=== PATIENT | male | born 1980 | race Hispanic/Latino ===

== ENCOUNTER 2025-04-11 11:19 | Emergency (ER) | payer BC, MEDICAID ==
[~2025-04-11] VITALS: Ht 175.3 cm; Wt 176.0 kg
--- NOTE | 2025-04-11 11:48 | ERN ---
ED Note History of Present Illness Stated Complaint: LLQ ABSCESS Chief Complaint: Abscess Time Seen by MD: 11:22 Time Seen by Midlevel: 11:25 Dictation: 44-year-old male with no past medical history coming in with complaints of abscess to the left lateral abdominal wall. Patient states these started with a redness on Thursday, went to the PCP today and was sent here for evaluation. Denies having any fevers, nausea vomiting or diarrhea. Allergies: Coded Allergies: No Known Allergies (Unverified Allergy, Unknown, 04/11/25) Past Medical History Past Medical History: Sinusitis Surgical History: Other Surgical History Other: SINUS Review of System Dictation Constitutional: Negative for fever,chills, and weight loss Eyes: Negative for injury, pain,redness, and discharge ENT: Negative for injury,pain or swelling Cardiovascular: Negative for chest pain, palpitations, and edema Respiratory: Negative for shortness of breath, cough, and wheezing, Abdomen/GI: Negative for abdominal pain, nausea, vomiting, diarrhea, and constipation, redness and drainage to the left abdomen wall, laterally Back: Negative for injury and pain : Negative for injury, bleeding and discharge MS/Extremity: Negative for injury and deformity Skin: Negative for rash, and discoloration Neuro: Negative for headache, weakness, numbness, tingling, and seizure Psych: Negative for suicide ideation, homicidal ideation, and hallucinations Review of Systems: was completed Initial Vital Sign VS Vital Signs Date Time Temp Pulse Resp B/P (MAP) Pulse Ox O2 Delivery O2 Flow Rate FiO2 04/11/25 11:20 98.1 95 18 131/70 94 Room Air 0 04/11/25 12:31 21 Physical Exam Dictation General: awake, alert, NAD Head/Face: Normocephalic, atraumatic Eyes: PERRL, EOMI, vision at baseline ENT: oral cavity clear, TMs clear, no signs of infection Neck: Trachea midline, supple, no nuchal rigidity Cardiovascular: RRR, normal S1/S2, No MRGs, no JVD Respiratory: CTAB, no respiratory distress, No rales or wheezes Abdomen: Soft, non-tender, non-distended, normal bowel sounds, no guarding or rebound., there is an area on the left lateral abdominal wall that is red, a drainage induration Skin: Warm, dry, normal turgor, no rash MS/Extremity: Pulses equal, no cyanosis, neurovascular intact, FROM Neuro: COAx4, GCS 15, strength 5/5, CN 2-12 intact, normal cerebellar exam, normal gait, Psych: Normal behavior, mood, and affect normal Results (Laboratory/Radiology) Laboratory/Radiology Laboratory Tests Test 04/11/25 11:46 White Blood Count 9.0 K/uL (4.8-10.8) Red Blood Count 5.71 MIL/uL (4.50-6.20) Hemoglobin 15.5 g/dL (14.0-18.0) Hematocrit 46.4 % (42-54) Mean Corpuscular Volume 81.3 fL (79-99) Mean Corpuscular Hemoglobin 27.1 pg (27.0-33.0) Mean Corpuscular Hemoglobin Concent 33.4 g/dL (32.0-36.0) Red Cell Distribution Width 12.9 % (11.0-15.5) Platelet Count 253 K/uL (130-400) Mean Platelet Volume 9.6 fL (7.5-10.5) Immature Granulocyte % (Auto) 0.2 % (0-1) Neutrophils (%) (Auto) 67.9 % (40.0-77.0) Lymphocytes (%) (Auto) 20.5 % (21.0-51.0) L Monocytes (%) (Auto) 8.8 % (3.0-13.0) Eosinophils (%) (Auto) 2.3 % (0.0-8.0) Basophils (%) (Auto) 0.3 % (0.0-5.0) Neutrophils # (Auto) 6.1 K/uL (1.8-7.7) Lymphocytes # (Auto) 1.9 K/uL (1.0-4.8) Monocytes # (Auto) 0.8 K/uL (0.1-1.0) Eosinophils # (Auto) 0.21 K/uL (0.00-0.70) Basophils # (Auto) 0.03 K/uL (0.00-0.20) Absolute Immature Granulocyte (auto 0.02 K/uL (0-1) Nucleated Red Blood Cells 0.0 % (0.0-0.19) Sodium Level 137 mmol/L (136-145) Potassium Level 3.9 mmol/L (3.5-5.1) Chloride Level 101 mmol/L (101-111) Carbon Dioxide Level 29 mmol/L (21-32) Blood Urea Nitrogen 14 mg/dL (7-18) Creatinine 0.9 mg/dL (0.5-1.3) Glomerular Filtration Rate Calc 109 mL/min (>90) Random Glucose 117 mg/dL (70-105) H Lactic Acid Level 1.6 mmol/L (0.8-2.5) Total Calcium 9.0 mg/dL (8.5-10.1) Labs Reviewed?: Yes Ultrasound Comment: [facility] [address] [place] [address] IMAGING REPORT Signed PATIENT: ROSY FLORES MR#: [id number] : 1980 SEX: M AGE: 44 LOCATION: [facility] ORDER 1131 STATUS: REG REPORT#: [id number] SERVICE 1129 REASON: r/o abscess ORDERING PHYSICIAN: BRANNON OROPEZA NP PROCEDURE: SOFT ABD - US SOFT TISSUE ABD/ABD WALL EXAM: US Abdomen Limited CLINICAL HISTORY: r/o abscess TECHNIQUE: Real-time ultrasound of the abdomen (complete) with image documentation. COMPARISON: None provided. FINDINGS: Dedicated ultrasound imaging of the ventral abdominal wall demonstrates a small fluid collection within the subcutaneous soft tissue plane, approximately 0.5 cm deep to the skin, measuring 1.9 x 0.3 x 1.1 cm. This is concerning for an abscess. IMPRESSION: 1. Small subcutaneous fluid collection in the ventral abdominal wall measuring 1.9 x 0.3 x 1.1 cm, concerning for abscess. /[place] DICTATED BY: MEGAN OGLESBY Jr., MD DATE: 04/11/251310 ELECTRONICALLY SIGNED BY: MEGAN OGLESBY Jr., MD DATE: 04/11/251310 ED Course ED Course Orders Procedure Category Date Status Time Cbc With Differential LAB 04/11/25 Complete 11:29 Basic Metabolic Panel LAB 04/11/25 Complete 11:29 Lactic Acid LAB 04/11/25 Complete 11:29 Us Soft Tissue US 04/11/25 Resulted Abd/Abd Wall 11:29 Aerobic Culture NATASHA 04/11/25 In Process 11:29 Vital Signs Date Time Temp Pulse Resp B/P (MAP) Pulse Ox O2 Delivery O2 Flow Rate FiO2 04/11/25 12:31 98.4 75 18 110/66 99 Room Air* 0 21 04/11/25 11:20 98.1 95 18 131/70 94 Room Air 0 Medical Decision Making MDM MDM: 44-year-old male with no past medical history coming in with complaints of abscess to the left lateral abdominal wall. Patient states these started with a redness on Thursday, went to the PCP today and was sent here for evaluation. Denies having any fevers, nausea vomiting or diarrhea. Blood work unremarkable, no white count, lactic normal. See I and D note for procedure. Discussed with the patient on wound care. Educated on signs and symptoms return back to the ER. Patient verbalized understanding, answered all questions. Differential diagnosis: Cellulitis, abscess Rationale: Tests considered and ordered secondary to shared decision making include: Previous outside records reviewed: Old ER visits. Risk of complication and/or morbidity or mortality of patient management: None Medications-Per medication reconciliation Need for hospitalization: Patient does not meet criteria for hospitalization. Need for emergency major/minor surgery: No There are no social concerns with this patient. Prescription drug management Prescriptions will include symptomatic care Patient's prior external medical records from other ER visits were reviewed by me as indicated. Prior testing and results from previous visits were reviewed. Prior tests were taken into account with medical decision making and resource utilization, independent historian/historians were used to obtain complete medical history. I independently interpreted the test that were performed, results were reviewed by me and considered findings on radiology if ordered. Medical management and examination interpretation discussions were had by me with other qualified healthcare professionals as indicated for the patient's care. Procedure Blade Size: 11 I & D Procedure: no betadine prepno sterile dressing applied Progress About 1.5 cc of purulent drainage noted. Wound was irrigated with 10 cc of normal saline. Patient tolerated procedure DX & DISP Disposition: Discharge Departure Impression: Primary Impression: Abdominal wall abscess Condition: Stable Scripts Mupirocin (Mupirocin Ointment) 2 % Oint 1 APPL TP TID for 5 Days, #15 GM 0 Refills apply to affected area(s) Prov: BRANNON OROPEZA NP 04/11/25 Clindamycin HCl (Clindamycin HCl) 300 Mg Capsule 1 CAP PO TID for 10 Days, #30 CAP 0 Refills Prov: BRANNON OROPEZA NP 04/11/25 Referrals: KENNEDI LAGUNAS MD (PCP) Time of Disposition: 12:57 I have reviewed the case, and I agree with, Diagnosis and Plan BRANNON OROPEZA NP Apr 11, 2025 11:48
[2025-04-11 11:55] LABS: IMMATURE GRANULOCYTE ABSOLUTE 0.02 K/uL (0-1); NUCLEATED RED BLOOD CELLS 0.0 % (0.0-0.19); PLATELET COUNT (AUTO) 253 K/uL (130-400); RED BLOOD CELL COUNT(AUTO) 5.71 MIL/uL (4.50-6.20); RED CELL DISTRIBUTION WIDTH 12.9 % (11.0-15.5); WHITE BLOOD COUNT (AUTO) 9.0 K/uL (4.8-10.8)
[2025-04-11 12:06] LABS: CREATININE 0.9 mg/dL (0.5-1.3); GLOMERULAR FILTR. RATE CALC 109.0 mL/min (>90); GLUCOSE,RANDOM 117.0 mg/dL (70-105); SODIUM SERUM 137.0 mmol/L (136-145); UREA NITROGEN, BLOOD 14.0 mg/dL (7-18)
--- NOTE | 2025-04-11 12:12 | HMCIMG ---
EXAM: US Abdomen Limited CLINICAL HISTORY: r/o abscess TECHNIQUE: Real-time ultrasound of the abdomen (complete) with image documentation. COMPARISON: None provided. FINDINGS: Dedicated ultrasound imaging of the ventral abdominal wall demonstrates a small fluid collection within the subcutaneous soft tissue plane, approximately 0.5 cm deep to the skin, measuring 1.9 x 0.3 x 1.1 cm. This is concerning for an abscess. IMPRESSION: 1. Small subcutaneous fluid collection in the ventral abdominal wall measuring 1.9 x 0.3 x 1.1 cm, concerning for abscess. /[place]
[2025-04-11] MEDS ORDERED: CLIN-141 PO (12:59)
[2025-04-11] MEDS ORDERED: MUPI22OI2 TP (12:59)
[2025-04-11 13:03] VITALS: BP 119/76; PULSE 73; RESP 18; TEMP 98.8; O2SAT 99
--- NOTE | 2025-04-11 13:05 | NUR ---
WOUND CARE COMPLETED AND EXPLAINED TO PATIENT, TEACH BACK COMPLETED AND VERBALIZED UNDERSTANDING./[place]
== END 2025-04-11 13:12 | disposition home or self-care (01) ==
LOC: EDH 11:19
DX: L02.211 Cutaneous abscess of abdominal wall (principal)
CPT/HCPCS: 10060; 36415; 76705; 80048; 83605; 85025; 87070; 87086; 87186; 99284